=== PATIENT | female | born 1975 | race African-American/Black ===

== ENCOUNTER → 2016-11-08 | Day surgery (SDC) | payer OTHER, BC ==
[~2016-11-08] VITALS: Ht 175.3 cm; Wt 103.7 kg
[~2016-11-08] MED LIST: INDOMETHACIN 50 MG CAP PO ONE; INSULIN HUMAN REGULAR 1,000 UNITS/10 ML VIAL SQ PRN; LACTATED RINGER'S 1000 ML IV SCH; METOPROLOL TARTRATE 25 MG TAB PO PRN; ONDANSETRON HCL 4 MG/2 ML VIAL IV PRN; PREN1CAP33 PO; SODIUM CHLORID 0.9% 500 ML IV SCH; ceFAZolin 1,000 MG/NS 100 ML IV SCH; oxyCODONE/ACETAMINOPHEN 5 MG/325 MG TAB PO PRN
[2016-11-08 06:45] VITALS: BP 106/66; PULSE 80; RESP 20; TEMP 98.3; O2SAT 99
[2016-11-08 07:15] LABS: AUTOMATED NEUTROPHIL # 5.4 TH/MM3 (1.8-7.7); BASOPHIL % 0.6 % (0.0-2.0); EOSINOPHIL # 0.1 TH/MM3 (0-0.4); EOSINOPHIL % 0.8 % (0.0-4.0); HEMATOCRIT 34.6 % (35.0-46.0); HEMO FLAGS DIFF FINAL; LYMPH % 23.9 % (9.0-44.0); LYMPHOCYTE # 1.9 TH/MM3 (1.0-4.8); MEAN CELL VOLUME 76.5 FL (80.0-100.0); MEAN CORPUSCULAR HEMOGLOBIN 25.8 PG (27.0-34.0); MEAN CORPUSCULAR HGB CONC 33.8 % (32.0-36.0); MONO % 6.7 % (0.0-8.0); PLATELET COUNT 307 TH/MM3 (150-450); RED BLOOD COUNT 4.53 MIL/MM3 (4.00-5.30); RED CELL DISTRIBUTION WIDTH 13.2 % (11.6-17.2); WHITE BLOOD COUNT 7.9 TH/MM3 (4.0-11.0)
--- NOTE | 2016-11-08 08:18 | MH ---
cc: FIORELLA CAMPBELL DATE OF ADMISSION: 11/08/2016 ADMITTING DIAGNOSIS: 11/08/2016 HISTORY OF PRESENT ILLNESS The patient is a 40-year-old 2, para 0-1-0-1 who presents at 14+ weeks gestation for an elective cervical cerclage. The patient had a due date of 05/08/2017 and has a history of cervical incompetence with her past and delivery at 29 weeks. Her thus far has been uncomplicated. PAST MEDICAL HISTORY Negative. PAST SURGICAL HISTORY Negative. OBSTETRICAL HISTORY She had one delivered at 29 weeks. She was placed on bed rest approximately 24 weeks when incompetent cervix was noted. 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 Her cycles are regular. She does have a history of genital herpes. SOCIAL HISTORY Negative for cigarettes, alcohol or street drugs. 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 PHYSICAL EXAMINATION VITAL SIGNS: Her height is 5'9". Her weight is 227. Her blood pressure is 106/68. IN GENERAL: She is in no acute distress. HEART: Regular rate and rhythm. LUNGS: Clear to auscultation bilaterally. ABDOMEN: Soft, nontender, nondistended. LOWER EXTREMITIES: Nontender, non-edematous. IMPRESSION 1. History of cervical incompetence. 2. at 14+ weeks gestation. PLAN Foote's cervical cerclage. The risks, benefits and alternatives have been reviewed. The patient does desire to proceed. MD VENKAT Deutsch/[facility] /10:05 PM /8:15 AM
[2016-11-08 14:00] VITALS: BP 126/65; PULSE 96; RESP 18; TEMP 98.1; O2SAT 100
--- NOTE | 2016-11-15 08:58 | PD.OP ---
Operative Report Date of Surgery: Nov 08, 2016 Preoperative Diagnosis: [id number], hx of cervical incompetence Postoperative Diagnosis: same Procedure: Foote Cerclage Anesthesia: spinal Surgeon: Lisa Harris MD Instructor Of Education(s): none Operation and Findings: Pt was consented and given spinal anesthesia. Her legs were placed in the candy cane stirrups. A speculum was inserted into the vagina. A 5 mm merilene suture was placed from 12 o clock to 3 then from 3 to 8 and from 8 o clock to 12 o clock and then tied into a knot and tagged with prolene. All instruments were removed from the vaginal. Pt was taken to the recovery room in stable condition Lisa Harris MD Nov 15, 2016 08:58
== END | disposition home or self-care (01) ==
LOC: HSDC 06:05
PROVIDERS: ATTEND Obstetrics & Gynecology
DX: O34.32 Maternal care for cervical incompetence, second trimester (principal); Z3A.14 14 weeks gestation of pregnancy
CPT/HCPCS: 00948; 59320; 85025; 86850; 86900; 86901; J0690; J7120

== ENCOUNTER → 2016-12-07 | Outpatient (CLI) | payer OTHER, BC ==
[~2016-12-07] MED LIST changes: -INDOMETHACIN 50 MG CAP PO ONE; -INSULIN HUMAN REGULAR 1,000 UNITS/10 ML VIAL SQ PRN; -LACTATED RINGER'S 1000 ML IV SCH; -METOPROLOL TARTRATE 25 MG TAB PO PRN; -ONDANSETRON HCL 4 MG/2 ML VIAL IV PRN; -SODIUM CHLORID 0.9% 500 ML IV SCH; -ceFAZolin 1,000 MG/NS 100 ML IV SCH; -oxyCODONE/ACETAMINOPHEN 5 MG/325 MG TAB PO PRN
== END ==
LOC: HPND 08:43
PROVIDERS: ATTEND Obstetrics & Gynecology
DX: O09.529 Supervision of elderly multigravida, unspecified trimester (principal); O34.30 Maternal care for cervical incompetence, unspecified trimester; N88.3 Incompetence of cervix uteri
CPT/HCPCS: 76811; 76817

== ENCOUNTER → 2016-12-24 | Outpatient (CLI) | payer OTHER, BC | LOC: HPND 08:52 | PROVIDERS: ATTEND Obstetrics & Gynecology | DX: O09.219 Supervision of pregnancy with history of pre-term labor, unspecified trimester (principal); O09.519 Supervision of elderly primigravida, unspecified trimester; Z3A.00 Weeks of gestation of pregnancy not specified | CPT/HCPCS: 76815; 76817 ==

== ENCOUNTER → 2017-01-04 | Outpatient (CLI) | payer OTHER, BC | LOC: HPND 09:10 | PROVIDERS: ATTEND Obstetrics & Gynecology | DX: O09.522 Supervision of elderly multigravida, second trimester (principal); O09.212 Supervision of pregnancy with history of pre-term labor, second trimester; Z3A.22 22 weeks gestation of pregnancy | CPT/HCPCS: 76816; 76817 ==

== ENCOUNTER → 2017-02-04 | Outpatient (CLI) | payer OTHER, BC | LOC: HPND 09:56 | PROVIDERS: ATTEND Obstetrics & Gynecology | DX: O09.522 Supervision of elderly multigravida, second trimester (principal); O09.292 Supervision of pregnancy with other poor reproductive or obstetric history, second trimester; O44.02 Complete placenta previa NOS or without hemorrhage, second trimester | CPT/HCPCS: 76816; 76817 ==

== ENCOUNTER → 2017-03-04 | Outpatient (CLI) | payer OTHER, BC | LOC: HPND 08:57 | PROVIDERS: ATTEND Obstetrics & Gynecology | DX: O34.30 Maternal care for cervical incompetence, unspecified trimester (principal); O09.529 Supervision of elderly multigravida, unspecified trimester; Z87.51 Personal history of pre-term labor | CPT/HCPCS: 76816 ==

== ENCOUNTER 2017-05-07 06:41 | Inpatient (IN) | payer OTHER, BC ==
[2017-05-07] VITALS (38 sets, daily range): BP systolic 96–150; BP diastolic 52–121; PULSE 73–131; RESP 16–18; TEMP 98–98.5
[~2017-05-07] VITALS: Ht 175.3 cm; Wt 117.9 kg
[2017-05-07] MEDS ORDERED: LACTATED RINGER'S 1000 ML INJ 1,000 ML IV PRN (07:54)
[2017-05-07] MEDS ORDERED: LACTATED RINGER'S 1000 ML INJ 1,000 ML IV SCH (07:54)
--- NOTE | 2017-05-07 07:56 | HHI.HP ---
History & Physical H&P HPI HPI Chief Complaint Contractions Date Seen: May 07, 2017 Time Seen: 07:40 Travel History International Travel<30 Days: No Contact w/Intl Traveler<30Days: No Known Affected Area: No History of Present Illness HPI 41-year-old 2 para 1 at 39-5/7 weeks' gestation who comes in today with contractions since 5 AM. She had cerclage removed at 36 weeks which had been in place for a history of incompetent cervix. Her cervix was 4 cm dilated in the office last week and is 5, 50 and -3 station with intact membranes and vertex presentation. Her contractions are increasing in intensity and occurring every 3-5 minutes. Category 1 heart rate. Para: 1 : 2 History (Limited) History Past Medical History Medical History: Denies Significant Hx Obstetric History Obstetric History Prior 28 week vaginal delivery On Valtrex for history of HSV with no symptoms of an outbreak Past Surgical History Narrative Surgical Cerclage Family History Family History: Negative Social History Alcohol Use: No Tobacco Use: No Substance Abuse: No Allergies-Medications Allergies-Medications (Allergen,Severity, Reaction): Coded Allergies: No Known Allergies (Verified , 11/04/16) Home Meds Reported Medications Vit W/ Fe Polysacch C (Vitafol Fe+ 90-1-200 & 50 mg)1 Cap Cap1 Cap PO DAILY 11/04/16 ROS Review of Systems Except as stated in HPI: all other systems reviewed are Neg Physical Exam Physical Exam Narrative GENERAL: Well-nourished, well-developed patient. SKIN: Warm and dry. HEAD: Normocephalic and atraumatic. EYES: No scleral icterus. No injection or drainage. ENT: No nasal drainage noted. Mucous membranes pink. Airway patent. NECK: Supple, trachea midline. No JVD. CARDIOVASCULAR: Regular rate and rhythm without murmurs, gallops, or rubs. RESPIRATORY: Breath sounds equal bilaterally. No accessory muscle use. ABDOMEN/GI: Abdomen soft, non-tender, bowel sounds present, no rebound, no guarding Gravid to [-] weeks size Fundal Height: [38-] GENITOURINARY: External Genitalia: intact and normal in appearance BUS glands: [-Negative] Cervix: [-] Dilatation: [-5] Effacement: [50-] Station: [-3-] Presentation: [-Vertex] Membranes: [intact ] Uterine Contractions: [Every 3-5-] FHT's: Category: [-1] Baseline: [-] Reactive: [-] Variability: [-] Decels: [-] EXTREMITIES: No cyanosis or edema. BACK: Nontender without obvious deformity. No CVA tenderness. NEUROLOGICAL: Awake and alert. Motor and sensory grossly within normal limits. Five out of 5 muscle strength in all muscle groups. Normal speech. Data Data MDM MDM Medical Record Reviewed: Yes Narrative Course / MDM Assessment: 39 + week intrauterine gestation with early labor Plan: Admit for labor management. Walker Leon MD May 07, 2017 07:55 Walker Leon MD May 07, 2017 07:56
[2017-05-07] MEDS ORDERED: OXYTOCIN 30 UNITS-500ML PREMIX 500 ML IV ONE (08:00)
[2017-05-07] MEDS ORDERED: CITRIC ACID-SODIUM CITRATE LIQ 30 ML UDC PO SCH (08:00)
[2017-05-07] MEDS ORDERED: MINERAL OIL 10 ML VIAL TOPICAL PRN (08:00)
[2017-05-07] MEDS ORDERED: LIDOCAINE HCL 1% 50 ML VIAL I-DERMAL PRN (08:00)
[2017-05-07] MEDS ORDERED: SODIUM CHLORID 0.9% 500 ML INJ 500 ML IV PRN (08:00)
[2017-05-07] MEDS ORDERED: LIDOCAINE HCL 1% 50 ML VIAL INFIL PRN (08:00)
[2017-05-07] MEDS ORDERED: SODIUM CHLOR 0.9% 1000 ML INJ 1,000 ML IV PRN (08:14)
[2017-05-07 08:53] LABS: AUTOMATED NEUTROPHIL # 6.1 TH/MM3 (1.8-7.7); BASOPHIL % 0.5 % (0.0-2.0); EOSINOPHIL % 0.4 % (0.0-4.0); HEMATOCRIT 34.2 % (35.0-46.0); HEMO FLAGS DIFF FINAL; LYMPH % 23.8 % (9.0-44.0); LYMPHOCYTE # 2.1 TH/MM3 (1.0-4.8); MEAN CELL VOLUME 81.4 FL (80.0-100.0); MEAN CORPUSCULAR HEMOGLOBIN 27.5 PG (27.0-34.0); MEAN CORPUSCULAR HGB CONC 33.8 % (32.0-36.0); MONO % 7.3 % (0.0-8.0); PLATELET COUNT 245 TH/MM3 (150-450); RED CELL DISTRIBUTION WIDTH 15.4 % (11.6-17.2); WHITE BLOOD COUNT 8.9 TH/MM3 (4.0-11.0)
[2017-05-07] MEDS ORDERED: PENICILLIN G POTASSIUM INJ 5,000,000 UNITS in SODIUM CHLORIDE 0.9% INJ 100 ML IV ONE (09:00)
[2017-05-07 09:02] LABS: BLOOD, URINE NEG (NEG); COMMENT (UR) CULT NOT INDICATED; CULTURE IF INDICATED CULT NOT INDICATED; GLUCOSE,URINE NEG (NEG); KETONE, URINE NEG (NEG); NITRITE,URINE NEG (NEG); SQUAMOUS EPITHELIAL CELL URINE <1 /hpf (0-5); URINE COLOR LIGHT-YELLOW (YELLW/STRAW)
[2017-05-07] MEDS ORDERED: fentaNYL 2MCG-BUPIV 0.125% INJ 100 ML ONE (10:29)
[2017-05-07] MEDS ORDERED: ePHEDrine/NS 25 MG/5 ML SYR ONE (10:29)
[2017-05-07] MEDS ORDERED: OXYTOCIN 30 UNITS-500ML PREMIX 500 ML IV SCH ×3 (11:00→14:15)
[2017-05-07] MEDS ORDERED: ePHEDrine/NS 25 MG/5 ML SYR IV PRN (12:00)
[2017-05-07] MEDS ORDERED: NO SYSTEM NARCOTICS PRN (12:00)
[2017-05-07] MEDS ORDERED: fentaNYL 2MCG-BUPIV 0.125% 100 ML EPIDURAL SCH (12:00)
[2017-05-07] MEDS ORDERED: DO NOT ADMINISTER ANTICOAGULANTS PRN (12:00)
[2017-05-07] MEDS ORDERED: PENICILLIN G POTASSIUM INJ 2,500,000 UNITS in SODIUM CHLORIDE 0.9% INJ 100 ML IV SCH (13:00)
--- NOTE | 2017-05-07 14:01 | PD.OB.DELI ---
Delivery Date: May 07, 2017 Anesthesia: Epidural Episiotomy: None Vaginal Delivery: Normal, Spontaneous Presentation: Occiput anterior Nuchal Cord: None Delayed cord clamping (45 sec): Yes Infant: Female, Single One Minute : 9 Five Minute : 9 Weight: 7# 6 oz Placenta: Spontaneous delivery, Intact, 3 vessel cord Laceration: 2 deg Repair: Chromic running, Vicryl interrupted Estimated blood loss: 300 Abilio Spain MD May 07, 2017 14:01
[2017-05-07] MEDS ORDERED: ONDANSETRON ODT 4 MG TAB PO PRN ×2 (14:15)
[2017-05-07] MEDS ORDERED: ALUMINUM/MAGNESIUM/SIMETH 30 ML CUP PO PRN ×2 (14:15)
[2017-05-07] MEDS ORDERED: ACETAMINOPHEN 325 MG TAB PO PRN ×2 (14:15)
[2017-05-07] MEDS ORDERED: oxyCODONE/ACETAMINOPHEN 5 MG/325 MG TAB PO PRN ×2 (14:15)
[2017-05-07] MEDS ORDERED: DOCUSATE SODIUM 50 MG/SENNA 8.6 MG TAB PO PRN (14:15)
[2017-05-07] MEDS ORDERED: SODIUM CHLORIDE 0.9% FLUSH 10 ML FLUSH IV FLUSH PRN (14:15)
[2017-05-07] MEDS ORDERED: WITCH HAZEL 50%/GLYCERIN 12.5% 40 PAD JAR TOPICAL PRN ×2 (14:15)
[2017-05-07] MEDS ORDERED: BENZOCAINE 20% TOPICAL SPRAY 60 ML CAN TOPICAL PRN ×2 (14:15)
[2017-05-07] MEDS ORDERED: IBUPROFEN 600 MG TAB PO PRN (14:15)
[2017-05-07] MEDS ORDERED: ZOLPIDEM TARTRATE 5 MG TAB PO PRN ×2 (14:15)
[2017-05-07] MEDS ORDERED: DIPHTH/TETANUS/ACEL PERTUSSIS (BOOSTER) 0.5 ML VIAL/PFS IM ONE ×2 (16:00)
[2017-05-07] MEDS ORDERED: MEASLES, MUMPS, RUBELLA VACCINE 0.5 ML VIAL SQ ONE ×2 (16:00)
[2017-05-07] MEDS: IBUPROFEN 600 MG TAB PO PRN ×2 (16:16→22:42)
[2017-05-07] MEDS ORDERED: SODIUM CHLORIDE 0.9% FLUSH 10 ML FLUSH IV FLUSH SCH (21:00)
[2017-05-08] MEDS: IBUPROFEN 600 MG TAB PO PRN ×3 (06:31→20:54)
[2017-05-08] MEDS: DOCUSATE SODIUM 50 MG/SENNA 8.6 MG TAB PO PRN ×2 (06:32→20:53)
--- NOTE | 2017-05-08 09:43 | HHI.DCPOC ---
Discharge Care Plan Diagnosis: (1) Spontaneous vaginal delivery Report Symptoms to Your Doctor -Temperature above 100.5 degrees -Redness, of incision or excessive or foul smelling drainage -Unusual pain or calf pain -Increased vaginal bleeding -Painful or difficulty urinating -Feelings of extreme sadness or anxiety after 2 weeks Goals to Promote Your Health * To prevent worsening of your condition and complications * To maintain your health at the optimal level Directions to Meet Your Goals Take your medications as prescribed Follow your dietary instruction Follow activity as directed Ensure plenty of rest for recovery Drink fluids for hydration Keep your appointments as scheduled Take your immunizations and boosters as scheduled If your symptoms worsen call your PCP, if no PCP go to Urgent Care Center or Emergency Room Smoking is Dangerous to Your Health. Avoid second hand smoke Call the 24-hour crisis hotline for domestic abuse at Abilio Spain MD May 08, 2017 09:43
[2017-05-08] MEDS ORDERED: OXYC1TAB63 PO (09:44)
[2017-05-09] MEDS: IBUPROFEN 600 MG TAB PO PRN ×2 (03:25→09:52)
--- NOTE | 2017-05-09 09:00 | HHI.OB ---
Subjective Post Day: 2 Remarks doing well Objective Objective Remarks GENERAL: Well-nourished, well-developed patient. ABDOMEN/GI: Abdomen soft, non-tender. Fundus: Firm, non-tender at umbilicus. GENITOURINARY: Light to moderate bleeding. EXTREMITIES: No cyanosis or edema, non-tender, without signs of DVT. Medications and IVs Current Medications Medications (Trade) Dose Ordered Sig/Earl Route Start Time Stop Time Status Last Admin (Tylenol) 650 mg Q4H PRN PO 05/07/17 14:15 (Motrin) 600 mg Q6H PRN PO 05/07/17 14:15 05/09/17 03:25 (Percocet 5-325 Mg) 1 tab Q4H PRN PO 05/07/17 14:15 (Percocet 5-325 Mg) 2 tab Q4H PRN PO 05/07/17 14:15 (Americaine 20% Top Spr) 1 spray Q4H PRN TOPICAL 05/07/17 14:15 05/07/17 16:16 (Tucks Pads) 1 applic QID PRN TOPICAL 05/07/17 14:15 05/07/17 16:16 (Lolita-Colace) 2 tab Q12H PRN PO 05/07/17 14:15 05/08/17 20:53 (Ambien) 5 mg HS PRN PO 05/07/17 14:15 (Mag-Al Plus Susp Liq) 15 ml Q8H PRN PO 05/07/17 14:15 (Zofran Odt) 4 mg Q6H PRN PO 05/07/17 14:15 Assessment/Plan Problem List: (1) Spontaneous vaginal delivery Assessment and Plan doing well Abilio Spain MD May 09, 2017 09:00
--- NOTE | 2017-05-09 09:02 | HHI.DS ---
Admission Date May 07, 2017 at 08:00 Discharge Date: May 09, 2017 Admitting Diagnosis Diagnosis: (1) Spontaneous vaginal delivery Diagnosis: Principal Delivery Date: May 07, 2017 Vaginal Delivery: Normal, Spontaneous : Female, Single Brief History 41-year-old 2 para 1 at 39-5/7 weeks' gestation who comes in today with contractions since 5 AM. She had cerclage removed at 36 weeks which had been in place for a history of incompetent cervix. Her cervix was 4 cm dilated in the office last week and is 550 and -3 station with intact membranes and vertex presentation. Her contractions are increasing in intensity and occurring every 3-5 minutes. Category 1 heart rate. Hospital Course doing well dc home SP Pt Condition on Discharge: Good Discharge Disposition: Discharge Home Discharge Instructions Diet Instructions: As Tolerated, No Restrictions Activities You Can Perform: Pelvic Rest Activities to Avoid: Driving for 24 hrs Follow up Referrals: [facility] - 2 Weeks @ [facility] with Abilio Spain MD New Medications: Oxycodone-Acetaminophen (Oxycodone-Acetaminophen) 5-325 mg Tab 1 TAB PO Q4H PRN PAIN SCALE 3 TO 5 #20 TAB Continued Medications: Vit W/ Fe Polysacch C (Vitafol Fe+ 90-1-200 & 50 mg) 1 Cap Cap 1 CAP PO DAILY Nutritional Supplement Abilio Spain MD May 09, 2017 09:02
== END 2017-05-09 14:47 | disposition home or self-care (01) | DRG 774 ==
LOC: HOBED 06:41 → H2EA 08:00 → H1EA 16:56
PROVIDERS: ADMIT Obstetrics & Gynecology; ATTEND Obstetrics & Gynecology
PROC: 10E0XZZ Delivery of Products of Conception, External Approach (ICD-10-PCS; principal; 2017-05-07)
PROC: 0KQM0ZZ Repair Perineum Muscle, Open Approach (ICD-10-PCS; 2017-05-07)
DX: O98.32 Other infections with a predominantly sexual mode of transmission complicating childbirth (principal); A60.00 Herpesviral infection of urogenital system, unspecified; Z37.0 Single live birth; Z3A.39 39 weeks gestation of pregnancy; O70.1 Second degree perineal laceration during delivery
CPT/HCPCS: 81001; 85025; 86703; 86900; 86901; 87641; J2540; J7120

== ENCOUNTER → 2017-07-04 | Day surgery (SDC) | payer BC ==
[~2017-07-04] VITALS: Ht 175.3 cm; Wt 105.1 kg
[~2017-07-04] MED LIST changes: +*morphine SULFATE 8 MG/ML PERIprocedure ONLY ONE; +ACETAMINOPHEN 1000 MG/100 ML 100 ML IV ONE; +AMOX500C PO; +APREPITANT 40 MG CAP ONE; +BUPIVACAINE/EPINEPHRINE 0.25% 50 ML VIAL ONE; +CHLORHEXIDINE GLUCONATE 2 % 1 PACK (2 CLOTHS) TOPICAL PRN; +DEXAMETHASONE SOD PHOS 4 MG/ML VIAL ONE; +DO NOT ADM ANY ANTICOAGULANT DRUGS PRN; +FAMOTIDINE 20 MG/2 ML VIAL ONE; +GLYCOPYRROLATE 1 MG/5 ML SYRINGE IV PUSH ONE; +IBUP800T23 PO; +INSULIN HUMAN REGULAR 1,000 UNITS/10 ML VIAL SQ PRN; +LACTATED RINGER'S 1000 ML IV PRN; +LIDOCAINE HCL 1% PF 5 ML AMPULE OTHER ONE; +METOPROLOL TARTRATE 25 MG TAB PO PRN; +MIDAZOLAM HCL 2 MG/2 ML VIAL IV ONE; +NEOSTIGMINE 3 MG/3 ML SYR IV ONE; +ONDANSETRON HCL 4 MG/2 ML VIAL IV PUSH ONE; +ONDANSETRON HCL 4 MG/2 ML VIAL IV PUSH PRN; +OXYC1TAB63 PO; +POVIDONE IODINE 5% (ANTISEPSIS KIT) 4 APPLICATIONS EACH NARE PRN; +PROPOFOL 200 MG/20 ML AMP IV ONE; +ROCURONIUM INJ 50 MG/5 ML SYRINGE IV PUSH ONE; +SODIUM CHLORID 0.9% 500 ML IV PRN; +SODIUM CHLORIDE 0.9% INJ 100 ML ONE; +ceFAZolin 1,000 MG/NS 100 ML IV SCH; +ceFAZolin INJ 1,000 MG VIAL ONE; +oxyCODONE/ACETAMINOPHEN 10 MG/325 MG TAB PO PRN; +oxyCODONE/ACETAMINOPHEN 5 MG/325 MG TAB PO PRN
--- NOTE | 2017-07-04 08:32 | MH ---
cc: FIORELLA CAMPBELL DATE OF ADMISSION: 07/04/2017 HISTORY OF PRESENT ILLNESS: The patient is a 41-year-old 2, para 2-0-0-2 who presents with undesired fertility. PAST MEDICAL HISTORY: Negative. PAST SURGICAL HISTORY: Negative. OB HISTORY: She has had two pregnancies via vaginal delivery. GYNECOLOGIC HISTORY: No history of abnormal Pap smears. Her cycles are regular. She does have a history of genital herpes. FAMILY HISTORY: She has a maternal aunt with breast cancer. SOCIAL HISTORY: Negative for cigarettes, alcohol or street drugs. 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 REVIEW OF SYSTEMS: Review of all other systems is negative. PHYSICAL EXAMINATION: HEIGHT: 5 feet 9. WEIGHT: 230. VITAL SIGNS: Her blood pressure is 116/70. GENERAL: She is in no acute distress. HEART: Regular rate and rhythm. LUNGS: Clear to auscultation bilaterally. ABDOMEN: The abdomen is soft, nontender and nondistended. LOWER EXTREMITIES: Nontender, nonedematous. IMPRESSION: Undesired fertility. PLAN: The plan is for laparoscopic bilateral tubal ligation. The risks, benefits, and alternatives have been reviewed. The patient does desire to proceed. MD VENKAT Deutsch/[facility] /6:01 PM /8:24 AM
[2017-07-04 11:09] LABS: AUTOMATED NEUTROPHIL # 3.4 TH/MM3 (1.8-7.7); BASOPHIL % 0.6 % (0.0-2.0); EOSINOPHIL # 0.1 TH/MM3 (0-0.4); EOSINOPHIL % 1.8 % (0.0-4.0); HEMATOCRIT 35.8 % (35.0-46.0); HEMO FLAGS DIFF FINAL; LYMPH % 33.8 % (9.0-44.0); LYMPHOCYTE # 2.1 TH/MM3 (1.0-4.8); MEAN CELL VOLUME 81.3 FL (80.0-100.0); MEAN CORPUSCULAR HEMOGLOBIN 25.9 PG (27.0-34.0); MEAN CORPUSCULAR HGB CONC 31.8 % (32.0-36.0); MONO % 7.9 % (0.0-8.0); NEUT % 55.9 % (16.0-70.0); PLATELET COUNT 319 TH/MM3 (150-450); RED CELL DISTRIBUTION WIDTH 14.7 % (11.6-17.2); WHITE BLOOD COUNT 6.2 TH/MM3 (4.0-11.0)
--- NOTE | 2017-07-04 13:18 | PD.OP ---
Operative Report Date of Surgery: Jul 04, 2017 Preoperative Diagnosis: undesired fertility Postoperative Diagnosis: same Procedure: laparoscopic bilateral tubal ligation Anesthesia: GET Surgeon: Lisa Harris MD Exceptional Children Teacher(s): none Operation and Findings: The patient was consented. She was taken to the operating room. She was prepped and draped in a normal sterile fashion for surgery. Next, the acorn uterine manipulator was inserted into the uterus and the anterior lip of the cervix was grasped using a single-toothed tenaculum. Gloves were then changed. The umbilical fold was then injected with 25% Marcaine with epinephrine and then a 5 millimeter skin incision was made in the umbilical fold. Then using the 5 millimeter trocar and direct visualization, this was inserted. Pneumoperitoneum was then obtained. Next, a second 5 millimeter incision was made after Marcaine had been injected approximately two fingerbreadths above the pubic symphysis and a second 5 millimeter trocar was inserted under direct visualization. Next, the findings previously revealed were noted. The Kleppinger with a resistance meter were used to cauterize approximately a 3 centimeter segment of fallopian tube with good result. It was done initially on the patient's left and then on the patient's right. Once this was done, it was felt the procedure was complete. All instruments were removed from the patient's abdomen. It was deflated. The skin incisions were closed using 4-0 Monocryl suture. All instruments were also removed from the patient's vagina. She was then awakened and taken to the recovery room in stable condition. Lisa Harris MD Jul 04, 2017 13:18
[2017-07-04 15:00] VITALS: BP 128/72; PULSE 57; RESP 18; O2SAT 98
== END | disposition home or self-care (01) ==
LOC: HSDC 09:47
PROVIDERS: ATTEND Obstetrics & Gynecology
DX: Z30.2 Encounter for sterilization (principal); D64.9 Anemia, unspecified; Z01.818 Encounter for other preprocedural examination
CPT/HCPCS: 00851; 58670; 84703; 85025; 86850; 86900; 86901; J0131; J0690; J1100; J2250; J2270; J2405; J2710; J3010; J7120; J8501